=== PATIENT | male | born 1970 | race Caucasian/White ===

== ENCOUNTER 2020-04-14 13:44 | Emergency (ER) | payer SELFPAY ==
--- NOTE | 2020-04-14 13:46 | PC.NURSE ---
Pt left immediately after intake when he was told his visitor could not stay with him in the lobby.
== END 2020-04-14 13:46 | disposition left against medical advice (07) ==
DX: Z53.21 Procedure and treatment not carried out due to patient leaving prior to being seen by health care provider (principal)
CPT/HCPCS: 99199

== ENCOUNTER 2020-04-28 09:17 | Emergency (ER) | payer SELFPAY ==
--- NOTE | ~2020-04-28 | CT_ITS ---
EXAMINATION: CT abdomen pelvis w con DATE: 04/28/2020 10:34 INDICATION: Left lower quadrant abdominal pain. TECHNIQUE: Computed tomography (CT) of the abdomen and pelvis was performed with 100 mL Omnipaque 350 intravenous contrast. Automated exposure control and iterative reconstruction technique were employe d. The dose-length product was 1471.87 mGy-cm. COMPARISON: None. FINDINGS: The visualized portions of the lung bases are clear without pneumonia or pleural effusion. The heart size is normal. No pericardial effusion. There are cysts in the liver measuring up to 2.3 c m. The gallbladder is contracted. The spleen, pancreas, adrenal glands, and left kidney are normal. T here is a 10 mm mass in right kidney measuring soft tissue attenuation. There is a right inguinal her sujatha containing fat. There are changes of left inguinal hernia repair. Wall thickening of the bladder may be secondary to chronic outlet obstruction from the moderately enlarged prostate. There is divert iculosis of the colon without evidence of diverticulitis. The appendix is normal. There is an umbilic al hernia containing fat. There are no pathologically enlarged lymph nodes. There is no free intraper itoneal fluid. There is moderate thoracic spondylosis and severe lumbar spondylosis. 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 There is 11 mm anterolisthesis of L5 on S1. There is interbody fusion at L5-S1. L3 is a limbus vertebra. IMPRESSION: 1. Right inguinal hernia containing fat. 2. 10 mm right kidney mass, which may be a hemorrhagic cyst or less likely a solid neoplasm. Abdomen CT or MRI without and with contrast is recommended. 3. Umbilical hernia containing fat. Reviewed, dictated and finalized at location [facility]. [facility] [employer] [facility] IMPRESSION: 1. Right inguinal hernia containing fat. 2. 10 mm right kidney mass, which may be a hemorrhagic cyst or less likely a so lid neoplasm. Abdomen CT or MRI without and with contrast is recommended. 3. Umbilical hernia containing fat.
[2020-04-28 09:25] VITALS: BP 163/100; PULSE 78; RESP 18; TEMP 35.8; O2SAT 100
[2020-04-28 09:52] LABS: Basophils Absolute Auto 0.1 K/mm3 (0.0-0.1); Basophils Percent Auto 0.6 % (0.2-1.2); Eosinophils Absolute Auto 0.3 K/mm3 (0-0.3); Eosinophils Percent Auto 2.8 % (0-4.4); Hematocrit 44.5 % (42.0-52.0); Immature Granulocyte Absolute 0.05 K/mm3 (0.00-0.031); Immature Granulocyte Percent A 0.5 % (0-0.5); Lymphocytes Absolute Auto 3.46 K/mm3 (0.9-3.2); Lymphocytes Percent Auto 36.7 % (18.3-44.2); Mean Corpuscular HGB Conc 33.7 g/dl (32-36); Mean Corpuscular Hemoglobin 29.6 pg (26-34); Mean Corpuscular Volume 87.8 fl (80-100); Mean Platelet Volume 9.5 fl (7.4-10.4); Monocytes Absolute Auto 0.8 K/mm3 (0.1-0.6); Monocytes Percent Auto 8.1 % (2.6-8.5); Neutrophils Absolute Auto 4.9 K/mm3 (1.3-6.7); Neutrophils Percent Auto 51.3 % (45.5-73.1); Platelet Count Result 313 k/mm3 (150-375); Red Blood Count 5.07 M/mm3 (4.6-6.20); Red Cell Distribution Width 13.2 % (11.5-14.5); White Blood Count 9.4 K/mm3 (4.5-10.0)
[2020-04-28 09:55] LABS: Add Urine Microscopic? YES; Appearance Urine Clear (Clear); Bilirubin Urine Negative (Negative); Blood Urine 1+ (Negative); Color Urine Yellow (Yellow); Glucose Urine UA Negative (Negative); Ketones Urine Negative (Negative); Leukocyte Esterase Ur Negative LEU/UL (Negative); Mucus Urine Rare /lpf; Nitrate Urine Negative (Negative); Protein Urine 1+ mg/dL (Negative); Specific Grav Ur 1.023 (1.001-1.035); Squamous Epithelial Cell Urine Rare /hpf (Few); WBC Urine 0-3 /hpf
[2020-04-28 10:16] LABS: Alanine Aminotransferase 28 U/L (4-50); Alkaline Phosphatase 77 U/L (38-126); Anion Gap 4 mmol/L (8-16); Aspartate Amino Transferase 38 U/L (17-59); Bilirubin,Total 0.5 mg/dL (0.2-1.3); Blood Urea Nitrogen 16 mg/dL (9-20); Carbon Dioxide 34 mmol/L (22-30); Chloride 102 mmol/L (98-107); Estimated CRCL calculation 107 ml/min; Estimated Glomerular Filt Rate > 60; Glucose 72 mg/dL (75-110); Potassium 4.1 mmol/L (3.4-5.0); Sodium 140 mmol/L (137-145)
[2020-04-28 10:41] VITALS: BP 160/85; PULSE 81; RESP 18; O2SAT 98
--- NOTE | 2020-04-28 11:20 | ED.ABDPAIN ---
HPI - Abdominal Pain General Chief Complaint: Abdominal Pain Stated Complaint: old hernia bothering me again Time Seen by Provider: 04/28/20 09:25 Source: patient Mode of arrival: ambulatory Limitations: no limitations History of Present Illness HPI narrative: Patient presents with chief complaint of pain to the left lower groin that has been worsening over the past week. He states when he is at rest it is minimal but worsens with lifting and strenuous movement and is a sharp tearing sensation. Patient states he had inguinal hernia repair with mesh approximately [address] Judd GRAHAM but he has since retired. Patient states that the surgery was without complications. 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 Patient states he has been able to eat and drink normally he denies any issues urinating or having bowel movements or any mucus or blood in his urine or stool. Patient denies any testicular pain or penile pain. Patient denies any fever, chills, nausea, vomiting, diarrhea or any other symptoms. Related Data Home Medications Medication Instructions Recorded Confirmed No Home Medications 04/28/20 04/28/20 Allergies Allergy/AdvReac Type Severity Reaction Status Date / Time No Known Allergies Allergy Verified 04/28/20 09:49 Review of Systems Review of Systems: Narrative: CONSTITUTIONAL: Denies fever, chills, or sweats. EYES: Denies visual changes, redness, or discharge. ENT: Denies rhinorrhea, congestion, sore throat, or otalgia. CARDIOVASCULAR: Denies chest pain, palpitations, or edema. RESPIRATORY: Denies cough or dyspnea. GASTROINTESTINAL: Reports left groin pain Denies abdominal pain, nausea, vomiting, or diarrhea. GENITOURINARY: Denies dysuria or hematuria. SKIN: Denies rash or itching. MUSCULOSKELETAL: denies back pain, joint pain, or myalgia. NEUROLOGIC: Denies headache, numbness, dizziness, or weakness. PSYCHIATRIC: Denies anxiety or depression. PMFSH Social History Social History Gender identity (if verbalized by the patient): Male Sexual Orientation (if Verbalized by the Patient): Straight or Heterosexual Exam Narrative: Exam Narrative: GENERAL: Well-appearing, well-nourished, and in no acute distress or discomfort. HEAD: Normocephalic, atraumatic. EYES: PERRLA and EOMI. NECK: Supple. No adenopathy or masses. CHEST: Clear to auscultation. No respiratory distress. No wheezes rales or rhonchi HEART: Regular rate and rhythm. ABDOMEN: Soft, tenderness to palpation of left lower abdomen and groin, nondistended, normal active bowel sounds. No guarding or rebound tenderness. Healed surgical scars below umbilicus. EXTREMITIES: Normal range of motion. No edema. SKIN: Warm, dry, no rash. NEURO: No focal deficits. Alert and oriented x3. PSYCH: Normal mood and affect. Course Vital Signs Vital signs: Vital Signs Temperature 96.5 F L 04/28/20 09:25 Pulse Rate 78 04/28/20 09:25 Respiratory Rate 18 04/28/20 09:25 Blood Pressure 163/100 H 04/28/20 09:25 Pulse Oximetry 100 04/28/20 09:25 Temperature 96.5 F L 04/28/20 09:25 Pulse Rate 81 04/28/20 10:41 Respiratory Rate 18 04/28/20 10:41 Blood Pressure 160/85 H 04/28/20 10:41 Pulse Oximetry 98 04/28/20 10:41 MDM - Abdominal Pain MDM Narrative Medical decision making narrative: Discussed with patient the findings of a right inguinal hernia as well as a renal mass that needs further evaluation and outpatient MRI. Discussed with him the importance of following up with his primary care and general surgeon for further evaluation and management. Patient instructed to return to emergency department if she has any emergent symptoms. Differential Diagnosis Differential diagnosis: Likely abdominal pain, acute appendicitis, calculus of kidney, constipation, diverticulitis, endometriosis, gastroenteritis, pa
[2020-04-28 12:11] VITALS: BP 146/82; PULSE 79; RESP 23; O2SAT 96
== END 2020-04-28 12:18 | disposition home or self-care (01) ==
PROVIDERS: Physician Assistant; Emergency Provider Emergency Medicine
DX: N28.89 Other specified disorders of kidney and ureter (principal); K40.90 Unilateral inguinal hernia, without obstruction or gangrene, not specified as recurrent; K42.9 Umbilical hernia without obstruction or gangrene
CPT/HCPCS: 36415; 74177; 80053; 81001; 85025; 96365; 99284; J0131; Q9967